=== PATIENT | female | born 1970 | race Caucasian/White ===

== ENCOUNTER 2016-06-16 17:50 | Emergency (ER) | payer OTHER ==
--- NOTE | 2016-06-16 18:43 | DIAGNOSTIC IMAGING REPORT ---
PROCEDURE: XR CHEST 2 VIEW INDICATION: ASTHMA TECHNIQUE: Two views. COMPARISON: None. FINDINGS: The cardiomediastinal contour and central vasculature are within normal limits. The lungs are clear without focal consolidation, pleural effusion, or pneumothorax. The visualized osseous structures are intact. Surgical clips in the gallbladder fossa. IMPRESSION: 1. Normal chest.
--- NOTE | 2016-06-16 18:56 | ED CLINICAL REPORT ---
Clinical Report - Physicians/Mid Levels [facility] [address] [place] [address] 06/16/2016 17:51 Patient: JUDY MARIE Time Seen: 1818. Arrived- By private vehicle. Historian- patient. HISTORY OF PRESENT ILLNESS Chief Complaint: HISTORY OF ASTHMA. This started past few days and is still present. It was gradual in onset and has been constant and waxing/waning but is not gone now. The dyspnea is described as moderate. The patient has had a cough. No sputum production, orthopnea or chest discomfort. Asthma triggers: (seasonal changes). Takes asthma medications, has not needed them for years and ran out. Similar symptoms previously: Several times. Recent medical care: Not recently seen/assessed. REVIEW OF SYSTEMS No sore throat, nausea, skin rash or vomiting. All systems otherwise negative, except as recorded above. PAST HISTORY See nurses notes. Allergies: No Known Drug Allergy. SOCIAL HISTORY Never smoker. No alcohol use or drug use. No recent travel. Is a local resident. ADDITIONAL NOTES The nursing notes have been reviewed. PHYSICAL EXAM Vital Signs: 06/16/2016 18:04 BP: 119/57. HR: 72. RR: 18. O2 saturation: 97%. Temp: 99.4 F. Pain level now: 0/10. Blood pressure normal. Oxygen saturation normal. Appearance: Alert. No acute distress. Eyes: Pupils equal, round and reactive to light. Eyes normal inspection. ENT: Ears normal. Nose normal. Pharynx normal. Uvula midline. Neck: Normal inspection. Neck supple. No JVD. CVS: Normal heart rate and rhythm. Heart sounds normal. Pulses normal. Respiratory: No respiratory distress. Expiratory mild bilateral wheezes anteriorly. No stridor, rales or rhonchi. Abdomen: Soft and nontender. No organomegaly. Skin: Skin warm and dry. Normal skin color. No rash. Normal skin turgor. Extremities: Extremities exhibit normal ROM. No clubbing present or lower extremity edema. No calf tenderness. No lower extremity edema. LABS, X-RAYS, AND EKG Chest X-ray: (PROCEDURE: XR CHEST 2 VIEW INDICATION: ASTHMA TECHNIQUE: Two views. COMPARISON: None. FINDINGS: The cardiomediastinal contour and central vasculature are within normal limits. The lungs are clear without focal consolidation, pleural effusion, or pneumothorax. The visualized osseous structures are intact. Surgical clips in the gallbladder fossa. IMPRESSION: 1. Normal chest.). Views: PA and lateral. The X-rays were independently viewed by me and interpreted contemporaneously by me. The X-rays were discussed with the radiologist (via pacs). Prior films were not available for comparison. PROGRESS AND PROCEDURES Course of Care: the patient is a pleasant 46-year-old female presenting for evaluation of asthma exacerbation. Appears to be related to upper respiratory tract infection. Patient is resting in bed and in no acute distress however does have wheezing on examination. Patient will be evaluated with chest x-ray as well as DuoNeb and prednisone. Patient is agreeable to treatment plan. Patient significantly improved with 1 DuoNeb and prednisone. Chest x-rays clear. Because the patient had significantly improved with one breathing treatment, do not feel patient needs to be evaluated laboratory studies or further workup here in the emergency department. Medications for home care have been provided. Patient is stable outpatient candidate. I discussion patient in regards to her workup here in the emergency department as well as return precautions, home care, and follow. All questions have been answered. The patient expressed understanding of these instructions and was agreeable to them. Prior to departure from the emergency department, patient was reevaluated. No signs of respiratory distress. Lungs are clear on examination throughout all lung ventura. Disposition: Discharged. Condition: good. CLINICAL IMPRESSION 06/16/2016 18:04 BP: 119/57. HR: 72. RR: 18. O2 saturation: 97%. Temp: 99.4 F. Pain level now: 0/10. Blood pressure normal. Oxygen saturation normal. Mild persistent asthma with an acute exacerbation. No status asthmaticus. INSTRUCTIONS Warnings: GENERAL WARNINGS: Return or contact your physician immediately if your condition worsens or changes unexpectedly, if not improving as expected, or if other problems arise. Specifically return if pain, vomiting, bleeding, breathing difficulty or fever. Prescription Medications: Prednisone 50 mg: take 1 orally every day for 5 days. Dispense five (5). No refills. Albuterol HFA oral inhaler: inhale 1-2 puffs via spacer every 4 hours as needed for wheezing, difficulty breathing or shortness of breath. Dispense one (1) unit. No refill. Follow-up: Return to the emergency department as needed. Follow up with your doctor in three days. Reason for referral: recheck today's concerns. Summary of care provided to patient via paper. Screening today revealed the patient's blood pressure to be in the normal range. The patient should follow up with a primary care provider for blood pressure management. Understanding of the discharge instructions verbalized by patient. (Electronically signed by Steven Pillai Dr. 06/22/2016 23:38)
--- NOTE | 2016-06-16 18:56 | ED ORDER SUMMARY ---
..... Patient: JUDY MARIE OrderSheet [facility] VisitID: [id number] [address] [place] [address] 46y, F Registration Date/Time: 06/16/2016 ORDER SHEET Weight: 102.0 kg Allergies: No Known Drug Allergy GENERAL ORDERS: Chest 2V Urgent (18:24 06/16/2016 Joe Canales) (Ack 18:25 KHoerner) (18:46 MCampbell) Service Restorer Emergency (Continuous) (asthma) (18:24 06/16/2016 Joe Canales) (18:35 TChapman R.N.) Pulse oximeter (18:24 06/16/2016 Joe Canales) (18:35 TChapman R.N.) MEDICATION ORDERS: DuoNeb Neb Tx 1 unit dose (NOW) (18:24 06/16/2016 Joe Canales) (19:13 TBowen R.N.) Prednisone PO 60 mg (NOW) (18:24 06/16/2016 Joe Canales) (18:40 TChapman R.N.) IV FLUIDS: ORDER SHEET NOTES: [Electronically signed by Ally Ashley R.N. (19:13 06/16/2016)] [Electronically signed by Steven Pillai Dr. (23:38 06/22/2016)] [Electronically locked/signed by Ally Ashley R.N. (19:13 06/16/2016)]
--- NOTE | 2016-06-16 18:56 | ED ORDER SUMMARY ---
..... Patient: JUDY MARIE OrderSheet [facility] VisitID: [id number] [address] [place] [address] 46y, F Registration Date/Time: 06/16/2016 ORDER SHEET Weight: 102.0 kg Allergies: No Known Drug Allergy GENERAL ORDERS: Chest 2V Urgent (18:24 06/16/2016 Joe Canales) (Ack 18:25 KHoerner) (18:46 MCampbell) Senior Genetic Counselor (Continuous) (asthma) (18:24 06/16/2016 Joe Canales) (18:35 TChapman R.N.) Pulse oximeter (18:24 06/16/2016 Joe Canales) (18:35 TChapman R.N.) MEDICATION ORDERS: DuoNeb Neb Tx 1 unit dose (NOW) (18:24 06/16/2016 Joe Canales) (19:13 TBowen R.N.) Prednisone PO 60 mg (NOW) (18:24 06/16/2016 Joe Canales) (18:40 TChapman R.N.) IV FLUIDS: ORDER SHEET NOTES: [Electronically signed by Ally Ashley R.N. (19:13 06/16/2016)] [Electronically signed by Steven Pillai Dr. (23:38 06/22/2016)] [Electronically locked/signed by Ally Ashley R.N. (19:13 06/16/2016)]
--- NOTE | 2016-06-16 18:56 | ED NURSING NOTES ---
Clinical Report - Nurses [facility] [address] [place] [address] 06/16/2016 17:51 [id number] Triage time 18:04. Acuity: LEVEL 3. Chief Complaint: SHORTNESS OF BREATH and DIFFICULTY BREATHING. --18:09 Alcira Maldonado R.N. 18:04 06/16/16. BP: 119/57. HR: 72. RR: 18. O2 saturation: 97%. Temp: 99.4 F. Pain level now: 0/10. --18:09 Alcira Maldonado R.N. Weight: 102 kg. Height/Length: 65 inches. BMI: 37.5. --19:12 Farshad Buckley Allergies No Known Drug Allergy. --18:05 Alcira Maldonado R.N. History Arrived by private vehicle. Historian: patient. Accompanied by family. Onset. (thursday 3 days ago). She has had a cough. She has had central chest pain associated with shortness of breath. ( patient thinks this SOB is due to seasonal allergies). PAST MEDICAL HX: Asthma. No history of chronic obstructive pulmonary disease, congestive heart failure, diabetes mellitus or hypertension. Immunizations: up-to-date. SURGERY HX: (2). Cholecystectomy. Had hysterectomy. SOCIAL HX: Never smoker. Alcohol use; consumes beer occasionally. No drug use. No infectious disease exposure. FALL RISK ASSESSMENT: Fall risk assessment completed. No fall risk identified. NUTRITIONAL RISK ASSESSMENT: The nutritional risk assessment revealed no deficiencies. FUNCTIONAL ASSESSMENT: Functional assessment: no impairments noted. LEARNING NEEDS ASSESSMENT: The learning needs assessment revealed no barriers. SKIN INTEGRITY ASSESSMENT: Skin integrity risk assessment completed. No skin integrity risk identified. --18:09 Alcira Maldonado R.N. Interventions ID band on patient. To treatment room. --18:09 Alcira Maldonado R.N. PHYSICAL ASSESSMENT GENERAL / NEURO / PSYCH: Alert. Oriented X 4. Appears in no acute distress. HEENT: Mucous membranes are pink. RESPIRATORY: Mild respiratory distress. Respirations not labored. Breath sounds within normal limits. CVS: Capillary refill less than 2 seconds. GI / : Abdomen soft. Bowel sounds within normal limits. SKIN: Skin is warm and dry. Normal skin turgor. --18:09 Alcira Maldonado R.N. NURSING PROGRESS NOTES The plan of care for this patient has been created. Monitoring of patient in place. Patient gowned. Head of bed elevated. Reassurance given. Two patient identifiers checked. Call light placed in reach. Side rails up x 1. Bed placed in lowest position. Brakes of bed on. Patient ready for evaluation- chart flagged. --18:10 Alcira Maldonado R.N. 18:39 06/16/2016 Prednisone PO Tablets 60 mg given. Allergies verified and confirmed 5 rights. --18:40 Alcira Maldonado R.N. 18:47 06/16/2016 Duoneb (Ipratropium-Albuterol) Neb TX 1 unit dose given. Given by the respiratory therapist. --19:13 Farshad Buckley DISPOSITION / DISCHARGE Departure time: 19:10. Condition at departure: improved. Discharge instructions provided and reviewed with the patient. Reviewed medication(s) side effects, precautions, dosing and course information. Prescription(s) given to the patient. Treatments reviewed. Reviewed referrals. Follow up contact number. Patient verbalized understanding. Written instructions provided in Georgian. No diet instructions, activity restrictions or stop smoking instructions. No work note given or school note given. The patient was discharged by the physician. She was discharged home and accompanied by family. She left the Emergency Department ambulatory and via private vehicle. Family member driving. FALL RISK ASSESSMENT: Fall risk assessment completed. No fall risk identified. --19:10 Farshad Buckley 19:08 06/16/16. BP: 122/68. HR: 64. RR: 16. O2 saturation: 98%. Temp: deferred. Pain level now: 0/10. --19:10 Farshad Buckley Locked/Released at 06/16/2016 19:13 by Farshad Buckley
--- NOTE | 2016-06-22 23:39 | ED MED RECONCILIATION SUMMARY ---
Patient: JUDY MARIE Medication Reconciliation Report [facility] VisitID: [id number] [address] [place] [address] 46y, F Registration Date/Time: 06/16/2016 Weight: 102.0 kg Height/Length: 65 in. BMI: 37.5 ALLERGIES: No Known Drug Allergy The patient's Home Medications are listed below: Not obtained. The source(s) of the original Home Medication information: Not obtained. The following Medications were given to the patient in the Emergency Department: Prednisone [PO] PO 60 mg, administered: 06/16/2016 6:39:00 PM Duoneb [Neb Tx] Neb TX 1 unit dose, administered: 06/16/2016 6:47:00 PM The following Medications were prescribed to the patient: Prednisone 50 mg: take 1 orally every day for 5 days. Dispense five (5). No refills. -- Steven Pillai Dr. Albuterol HFA oral inhaler: inhale 1-2 puffs via spacer every 4 hours as needed for wheezing, difficulty breathing or shortness of breath. Dispense one (1) unit. No refill. -- Steven Pillai Dr.
--- NOTE | 2016-06-22 23:39 | ED MAR SUMMARY ---
..... Medication Administration Record [facility] [address] [place] [address] Patient: JUDY MARIE Visit ID: [id number] 46y, F Weight: 102.0 kg Height/Length: 65 in BMI: 37.5 ALLERGIES: No Known Drug Allergy Given 18:39 06/16/2016 Alcira Maldonado R.N. Medication Administered: PREDNISONE [PO], Dose: 60 mg Tablets PO. Medication Ordered: Prednisone PO 60 mg (NOW). Given 18:47 06/16/2016 Farshad Buckley Medication Administered: DUONEB [NEB TX] (IPRATROPIUM-ALBUTEROL), Dose: 1 unit dose Neb TX. Medication Ordered: DuoNeb Neb Tx 1 unit dose (NOW).
--- NOTE | 2016-06-22 23:39 | ED MED RECONCILIATION SUMMARY ---
Patient: JUDY MARIE Medication Reconciliation Report [facility] VisitID: [id number] [address] [place] [address] 46y, F Registration Date/Time: 06/16/2016 Weight: 102.0 kg Height/Length: 65 in. BMI: 37.5 ALLERGIES: No Known Drug Allergy The patient's Home Medications are listed below: Not obtained. The source(s) of the original Home Medication information: Not obtained. The following Medications were given to the patient in the Emergency Department: Prednisone [PO] PO 60 mg, administered: 06/16/2016 6:39:00 PM Duoneb [Neb Tx] Neb TX 1 unit dose, administered: 06/16/2016 6:47:00 PM The following Medications were prescribed to the patient: Prednisone 50 mg: take 1 orally every day for 5 days. Dispense five (5). No refills. -- Steven Pillai Dr. Albuterol HFA oral inhaler: inhale 1-2 puffs via spacer every 4 hours as needed for wheezing, difficulty breathing or shortness of breath. Dispense one (1) unit. No refill. -- Steven Pillai Dr.
--- NOTE | 2016-06-22 23:39 | ED DISCHARGE INSTRUCTIONS ---
Patient: JUDY MARIE General Instructions [facility] VisitID: [id number] Yuridia [place] [address] 46y, F Registration Date/Time: 06/16/2016 06/16/2016 18:04 BP: 119/57. HR: 72. RR: 18. O2 saturation: 97%. Temp: 99.4 F. Pain level now: 0/10. Blood pressure normal. Oxygen saturation normal. Mild persistent asthma with an acute exacerbation. No status asthmaticus. INSTRUCTIONS Warnings: GENERAL WARNINGS: Return or contact your physician immediately if your condition worsens or changes unexpectedly, if not improving as expected, or if other problems arise. Specifically return if pain, vomiting, bleeding, breathing difficulty or fever. Prescription Medications: Prednisone 50 mg: take 1 orally every day for 5 days. Dispense five (5). No refills. Albuterol HFA oral inhaler: inhale 1-2 puffs via spacer every 4 hours as needed for wheezing, difficulty breathing or shortness of breath. Dispense one (1) unit. No refill. Follow-up: Return to the emergency department as needed. Follow up with your doctor in three days. Reason for referral: recheck today's concerns. Summary of care provided to patient via paper. Screening today revealed the patient's blood pressure to be in the normal range. The patient should follow up with a primary care provider for blood pressure management. Understanding of the discharge instructions verbalized by patient. ADDITIONAL INFORMATION Asthma [Adult] Asthma is a disease where the small air passages within the lung go into spasm and restrict the flow of air. Inflammation and swelling of the airways cause further restriction. During an acute asthma attack, these factors cause difficulty breathing, wheezing, cough and chest tightness. An asthma attack can be triggered by many things. Common triggers include the common cold, bronchitis, pneumonia, irritants such as smoke or pullutants in the air, emotional upset and heavy exercise. Inmany adults with asthma, allergies todust, mold, pollen and animal dander can cause an asthma attack. Skipping doses of daily asthma medicine can also bring on an asthma attack. Asthma can be controlled with proper medicines and decreased exposure to known allergens. Home Care: Take prescribed medicine exactly at the times advised. If you have a hand-held inhaler or aerosol breathing medicine, do not use it more than once every four hours, unless told to do so. (If you need this medicine more than every four hours, you may need to return to the Emergency Room.) If prescribed an antibiotic or prednisone, take all of the medicine even if you are feeling better after a few days. Do not smoke. Avoid being exposed to the smoke of others. Some persons with asthma have worsening of their symptoms when they take aspirin and non-steroidal medicines like ibuprofen (Motrin, Advil) and naproxen (Aleve, Naprosyn). Talk to your doctor if you think this may apply to you. Acetaminophen (Tylenol)should be safe to use. Follow Up with your doctor, or as advised by our staff. Always bring all of your current medicines with you for your doctor to see. If you do not already have one, talk to your doctor about developing a personalized "Asthma Action Plan." [NOTE: A pneumococcal vaccine and yearly flu shot (every fall) are recommended. Ask your doctor about this.] Get Prompt Medical Attention if any of the following occur: Increased wheezing or shortness of breath Need to use your inhalers more often than usual without relief Fever of 100.4F (38C) or higher, or as directed by your healthcare provider Coughing up lots of dark-colored or bloody sputum (mucus) Chest pain with each breath You do not start to improve within 24 hours Call 911 If Any Of The Following Occur : Trouble walking or talking because of shortness of breath If you use a peak flow meter andyou are still in the red zone (less than 50 percent) 15 minutes after using inhaler medication Lips or fingernails turning garcia or blue Prednisone Oral tablet What is this medicine? PREDNISONE (PRED ni sone) is a corticosteroid. It is commonly used to treat inflammation of the skin, joints, lungs, and other organs. Common conditions treated include asthma, allergies, and arthritis. It is also used for other conditions, such as blood disorders and diseases of the adrenal glands. How should I use this medicine? Take this medicine by mouth with a glass of water. Follow the directions on the prescription label. Take this medicine with food. If you are taking this medicine once a day, take it in the morning. Do not take more medicine than you are told to take. Do not suddenly stop taking your medicine because you may develop a severe reaction. Your doctor will tell you how much medicine to take. If your doctor wants you to stop the medicine, the dose may be slowly lowered over time to avoid any side effects. Talk to your internal affairs commander regarding the use of this medicine in children. Special care may be needed. What side effects may I notice from receiving this medicine? Side effects that you should report to your doctor or health tire care manager as soon as possible: allergic reactions like skin rash, itching or hives, swelling of the face, lips, or tongue changes in emotions or moods changes in vision depressed mood eye pain fever or chills, cough, sore throat, pain or difficulty passing urine increased thirst swelling of ankles, feet Side effects that usually do not require medical attention (report to your doctor or health tire care manager if they continue or are bothersome): confusion, excitement, restlessness headache nausea, vomiting skin problems, acne, thin and shiny skin trouble sleeping weight gain What may interact with this medicine? Do not take this medicine with any of the following medications: metyrapone mifepristone This medicine may also interact with the following medications: aminoglutethimide amphotericin B aspirin and aspirin-like medicines barbiturates certain medicines for diabetes, like glipizide or glyburide cholestyramine cholinesterase inhibitors cyclosporine digoxin diuretics ephedrine female hormones, like estrogens and control pills isoniazid ketoconazole NSAIDS, medicines for pain and inflammation, like ibuprofen or naproxen phenytoin rifampin toxoids vaccines warfarin What if I miss a dose? If you miss a dose, take it as soon as you can. If it is almost time for your next dose, talk to your doctor or health tire care manager. You may need to miss a dose or take an extra dose. Do not take double or extra doses without advice. Where should I keep my medicine? Keep out of the reach of children. Store at room temperature between 15 and 30 degrees C (59 and 86 degrees F). Protect from light. Keep container tightly closed. Throw away any unused medicine after the expiration date. What should I tell my health care provider before I take this medicine? They need to know if you have any of these conditions: Colliers's syndrome diabetes glaucoma heart disease high blood pressure infection (especially a virus infection such as chickenpox, cold sores, or herpes) kidney disease liver disease mental illness myasthenia gravis osteoporosis seizures stomach or intestine problems thyroid disease an unusual or allergic reaction to lactose, prednisone, other medicines, foods, dyes, or preservatives or trying to get breast-feeding What should I watch for while using this medicine? Visit your doctor or health tire care manager for regular checks on your progress. If you are taking this medicine over a prolonged period, carry an identification card with your name and address, the type and dose of your medicine, and your doctor's name and address. This medicine may increase your risk of getting an infection. Tell your doctor or health tire care manager if you are around anyone with measles or chickenpox, or if you develop sores or blisters that do not heal properly. If you are going to have surgery, tell your doctor or health tire care manager that you have taken this medicine within the last twelve months. Ask your doctor or health tire care manager about your diet. You may need to lower the amount of salt you eat. This medicine may affect blood sugar levels. If you have diabetes, check with your doctor or health tire care manager before you change your diet or the dose of your diabetic medicine. Albuterol Sulfate Pressurized inhalation, suspension What is this medicine? ALBUTEROL (al BYOO ter ole) is a bronchodilator. It helps open up the airways in your lungs to make it easier to breathe. This medicine is used to treat and to prevent bronchospasm. How should I use this medicine? This medicine is for inhalation through the mouth. Follow the directions on your prescription label. Take your medicine at regular intervals. Do not use more often than directed. Make sure that you are using your inhaler correctly. Ask you doctor or health care provider if you have any questions. Talk to your internal affairs commander regarding the use of this medicine in children. Special care may be needed. What side effects may I notice from receiving this medicine? Side effects that you should report to your doctor or health tire care manager as soon as possible: allergic reactions like skin rash, itching or hives, swelling of the face, lips, or tongue breathing problems chest pain feeling faint or lightheaded, falls high blood pressure irregular heartbeat fever muscle cramps or weakness pain, tingling, numbness in the hands or feet vomiting Side effects that usually do not require medical attention (report to your doctor or health tire care manager if they continue or are bothersome): cough difficulty sleeping headache nervousness or trembling stomach upset stuffy or runny nose throat irritation unusual taste What may interact with this medicine? anti-infectives like chloroquine and pentamidine caffeine cisapride diuretics medicines for colds medicines for depression or for emotional or psychotic conditions medicines for weight loss including some herbal products methadone some antibiotics like clarithromycin, erythromycin, levofloxacin, and linezolid some heart medicines steroid hormones like dexamethasone, cortisone, hydrocortisone theophylline thyroid hormones What if I miss a dose? If you miss a dose, use it as soon as you can. If it is almost time for your next dose, use only that dose. Do not use double or extra doses. Where should I keep my medicine? Keep out of the reach of children. Store at room temperature between 15 and 30 degrees C (59 and 86 degrees F). The contents are under pressure and may burst when exposed to heat or flame. Do not freeze. This medicine does not work as well if it is too cold. Throw away any unused medicine after the expiration date. Inhalers need to be thrown away after the labeled number of puffs have been used or by the expiration date; whichever comes first. Ventolin HFA should be thrown away 12 months after removing from foil pouch. Check the instructions that come with your medicine. What should I tell my health care provider before I take this medicine? They need to know if you have any of the following conditions: diabetes heart disease or irregular heartbeat high blood pressure pheochromocytoma seizures thyroid disease an unusual or allergic reaction to albuterol, levalbuterol, sulfites, other medicines, foods, dyes, or preservatives or trying to get breast-feeding What should I watch for while using this medicine? Tell your doctor or health tire care manager if your symptoms do not improve. Do not use extra albuterol. If your asthma or bronchitis gets worse while you are using this medicine, call your doctor right away. If your mouth gets dry try chewing sugarless gum or sucking hard candy. Drink water as directed. You have been given the following additional information: Asthma, Acute (Adult) Prednisone Oral tablet Albuterol Sulfate Pressurized inhalation, suspension (Electronically signed by Steven Pillai Dr. 06/22/2016 23:38)
--- NOTE | 2016-06-22 23:39 | ED MAR SUMMARY ---
..... Medication Administration Record [facility] [address] [place] [address] Patient: JUDY MARIE Visit ID: [id number] 46y, F Weight: 102.0 kg Height/Length: 65 in BMI: 37.5 ALLERGIES: No Known Drug Allergy Given 18:39 06/16/2016 Alcira Maldonado R.N. Medication Administered: PREDNISONE [PO], Dose: 60 mg Tablets PO. Medication Ordered: Prednisone PO 60 mg (NOW). Given 18:47 06/16/2016 Farshad Buckley Medication Administered: DUONEB [NEB TX] (IPRATROPIUM-ALBUTEROL), Dose: 1 unit dose Neb TX. Medication Ordered: DuoNeb Neb Tx 1 unit dose (NOW).
--- NOTE | 2016-06-22 23:39 | ED DISCHARGE INSTRUCTIONS ---
Patient: JUDY MARIE General Instructions [facility] VisitID: [id number] [place] [address] 46y, F Registration Date/Time: 06/16/2016 06/16/2016 18:04 BP: 119/57. HR: 72. RR: 18. O2 saturation: 97%. Temp: 99.4 F. Pain level now: 0/10. Blood pressure normal. Oxygen saturation normal. Mild persistent asthma with an acute exacerbation. No status asthmaticus. INSTRUCTIONS Warnings: GENERAL WARNINGS: Return or contact your physician immediately if your condition worsens or changes unexpectedly, if not improving as expected, or if other problems arise. Specifically return if pain, vomiting, bleeding, breathing difficulty or fever. Prescription Medications: Prednisone 50 mg: take 1 orally every day for 5 days. Dispense five (5). No refills. Albuterol HFA oral inhaler: inhale 1-2 puffs via spacer every 4 hours as needed for wheezing, difficulty breathing or shortness of breath. Dispense one (1) unit. No refill. Follow-up: Return to the emergency department as needed. Follow up with your doctor in three days. Reason for referral: recheck today's concerns. Summary of care provided to patient via paper. Screening today revealed the patient's blood pressure to be in the normal range. The patient should follow up with a primary care provider for blood pressure management. Understanding of the discharge instructions verbalized by patient. ADDITIONAL INFORMATION Asthma [Adult] Asthma is a disease where the small air passages within the lung go into spasm and restrict the flow of air. Inflammation and swelling of the airways cause further restriction. During an acute asthma attack, these factors cause difficulty breathing, wheezing, cough and chest tightness. An asthma attack can be triggered by many things. Common triggers include the common cold, bronchitis, pneumonia, irritants such as smoke or pullutants in the air, emotional upset and heavy exercise. Inmany adults with asthma, allergies todust, mold, pollen and animal dander can cause an asthma attack. Skipping doses of daily asthma medicine can also bring on an asthma attack. Asthma can be controlled with proper medicines and decreased exposure to known allergens. Home Care: Take prescribed medicine exactly at the times advised. If you have a hand-held inhaler or aerosol breathing medicine, do not use it more than once every four hours, unless told to do so. (If you need this medicine more than every four hours, you may need to return to the Emergency Room.) If prescribed an antibiotic or prednisone, take all of the medicine even if you are feeling better after a few days. Do not smoke. Avoid being exposed to the smoke of others. Some persons with asthma have worsening of their symptoms when they take aspirin and non-steroidal medicines like ibuprofen (Motrin, Advil) and naproxen (Aleve, Naprosyn). Talk to your doctor if you think this may apply to you. Acetaminophen (Tylenol)should be safe to use. Follow Up with your doctor, or as advised by our staff. Always bring all of your current medicines with you for your doctor to see. If you do not already have one, talk to your doctor about developing a personalized "Asthma Action Plan." [NOTE: A pneumococcal vaccine and yearly flu shot (every fall) are recommended. Ask your doctor about this.] Get Prompt Medical Attention if any of the following occur: Increased wheezing or shortness of breath Need to use your inhalers more often than usual without relief Fever of 100.4F (38C) or higher, or as directed by your healthcare provider Coughing up lots of dark-colored or bloody sputum (mucus) Chest pain with each breath You do not start to improve within 24 hours Call 911 If Any Of The Following Occur : Trouble walking or talking because of shortness of breath If you use a peak flow meter andyou are still in the red zone (less than 50 percent) 15 minutes after using inhaler medication Lips or fingernails turning garcia or blue Prednisone Oral tablet What is this medicine? PREDNISONE (PRED ni sone) is a corticosteroid. It is commonly used to treat inflammation of the skin, joints, lungs, and other organs. Common conditions treated include asthma, allergies, and arthritis. It is also used for other conditions, such as blood disorders and diseases of the adrenal glands. How should I use this medicine? Take this medicine by mouth with a glass of water. Follow the directions on the prescription label. Take this medicine with food. If you are taking this medicine once a day, take it in the morning. Do not take more medicine than you are told to take. Do not suddenly stop taking your medicine because you may develop a severe reaction. Your doctor will tell you how much medicine to take. If your doctor wants you to stop the medicine, the dose may be slowly lowered over time to avoid any side effects. Talk to your hydroelectric powerplant supervisor regarding the use of this medicine in children. Special care may be needed. What side effects may I notice from receiving this medicine? Side effects that you should report to your doctor or health career technical supervisor as soon as possible: allergic reactions like skin rash, itching or hives, swelling of the face, lips, or tongue changes in emotions or moods changes in vision depressed mood eye pain fever or chills, cough, sore throat, pain or difficulty passing urine increased thirst swelling of ankles, feet Side effects that usually do not require medical attention (report to your doctor or health career technical supervisor if they continue or are bothersome): confusion, excitement, restlessness headache nausea, vomiting skin problems, acne, thin and shiny skin trouble sleeping weight gain What may interact with this medicine? Do not take this medicine with any of the following medications: metyrapone mifepristone This medicine may also interact with the following medications: aminoglutethimide amphotericin B aspirin and aspirin-like medicines barbiturates certain medicines for diabetes, like glipizide or glyburide cholestyramine cholinesterase inhibitors cyclosporine digoxin diuretics ephedrine female hormones, like estrogens and control pills isoniazid ketoconazole NSAIDS, medicines for pain and inflammation, like ibuprofen or naproxen phenytoin rifampin toxoids vaccines warfarin What if I miss a dose? If you miss a dose, take it as soon as you can. If it is almost time for your next dose, talk to your doctor or health career technical supervisor. You may need to miss a dose or take an extra dose. Do not take double or extra doses without advice. Where should I keep my medicine? Keep out of the reach of children. Store at room temperature between 15 and 30 degrees C (59 and 86 degrees F). Protect from light. Keep container tightly closed. Throw away any unused medicine after the expiration date. What should I tell my health care provider before I take this medicine? They need to know if you have any of these conditions: [place]'s syndrome diabetes glaucoma heart disease high blood pressure infection (especially a virus infection such as chickenpox, cold sores, or herpes) kidney disease liver disease mental illness myasthenia gravis osteoporosis seizures stomach or intestine problems thyroid disease an unusual or allergic reaction to lactose, prednisone, other medicines, foods, dyes, or preservatives or trying to get breast-feeding What should I watch for while using this medicine? Visit your doctor or health career technical supervisor for regular checks on your progress. If you are taking this medicine over a prolonged period, carry an identification card with your name and address, the type and dose of your medicine, and your doctor's name and address. This medicine may increase your risk of getting an infection. Tell your doctor or health career technical supervisor if you are around anyone with measles or chickenpox, or if you develop sores or blisters that do not heal properly. If you are going to have surgery, tell your doctor or health career technical supervisor that you have taken this medicine within the last twelve months. Ask your doctor or health career technical supervisor about your diet. You may need to lower the amount of salt you eat. This medicine may affect blood sugar levels. If you have diabetes, check with your doctor or health career technical supervisor before you change your diet or the dose of your diabetic medicine. Albuterol Sulfate Pressurized inhalation, suspension What is this medicine? ALBUTEROL (al BYOO ter ole) is a bronchodilator. It helps open up the airways in your lungs to make it easier to breathe. This medicine is used to treat and to prevent bronchospasm. How should I use this medicine? This medicine is for inhalation through the mouth. Follow the directions on your prescription label. Take your medicine at regular intervals. Do not use more often than directed. Make sure that you are using your inhaler correctly. Ask you doctor or health care provider if you have any questions. Talk to your hydroelectric powerplant supervisor regarding the use of this medicine in children. Special care may be needed. What side effects may I notice from receiving this medicine? Side effects that you should report to your doctor or health career technical supervisor as soon as possible: allergic reactions like skin rash, itching or hives, swelling of the face, lips, or tongue breathing problems chest pain feeling faint or lightheaded, falls high blood pressure irregular heartbeat fever muscle cramps or weakness pain, tingling, numbness in the hands or feet vomiting Side effects that usually do not require medical attention (report to your doctor or health career technical supervisor if they continue or are bothersome): cough difficulty sleeping headache nervousness or trembling stomach upset stuffy or runny nose throat irritation unusual taste What may interact with this medicine? anti-infectives like chloroquine and pentamidine caffeine cisapride diuretics medicines for colds medicines for depression or for emotional or psychotic conditions medicines for weight loss including some herbal products methadone some antibiotics like clarithromycin, erythromycin, levofloxacin, and linezolid some heart medicines steroid hormones like dexamethasone, cortisone, hydrocortisone theophylline thyroid hormones What if I miss a dose? If you miss a dose, use it as soon as you can. If it is almost time for your next dose, use only that dose. Do not use double or extra doses. Where should I keep my medicine? Keep out of the reach of children. Store at room temperature between 15 and 30 degrees C (59 and 86 degrees F). The contents are under pressure and may burst when exposed to heat or flame. Do not freeze. This medicine does not work as well if it is too cold. Throw away any unused medicine after the expiration date. Inhalers need to be thrown away after the labeled number of puffs have been used or by the expiration date; whichever comes first. Ventolin HFA should be thrown away 12 months after removing from foil pouch. Check the instructions that come with your medicine. What should I tell my health care provider before I take this medicine? They need to know if you have any of the following conditions: diabetes heart disease or irregular heartbeat high blood pressure pheochromocytoma seizures thyroid disease an unusual or allergic reaction to albuterol, levalbuterol, sulfites, other medicines, foods, dyes, or preservatives or trying to get breast-feeding What should I watch for while using this medicine? Tell your doctor or health career technical supervisor if your symptoms do not improve. Do not use extra albuterol. If your asthma or bronchitis gets worse while you are using this medicine, call your doctor right away. If your mouth gets dry try chewing sugarless gum or sucking hard candy. Drink water as directed. You have been given the following additional information: Asthma, Acute (Adult) Prednisone Oral tablet Albuterol Sulfate Pressurized inhalation, suspension (Electronically signed by Steven Pillai Dr. 06/22/2016 23:38)
== END 2016-06-16 19:00 | disposition home or self-care (01) ==
LOC: ED SRH 17:50
DX: J45.31 Mild persistent asthma with (acute) exacerbation (principal)